=== PATIENT | male | born 1935 | race Caucasian/White ===

== ENCOUNTER 2020-04-20 19:11 | Emergency (ER) | payer OTHER, MEDICARE ==
[~2020-04-20] VITALS: Ht 172.7 cm; Wt 83.9 kg
[2020-04-20 19:28] VITALS: BP_SYST 138
[2020-04-20 22:20] VITALS: BP_SYST 101
== END 2020-04-20 22:20 | disposition home or self-care (01) ==
LOC: SED 19:11
DX: T83.021A Displacement of indwelling urethral catheter, initial encounter (principal); E07.9 Disorder of thyroid, unspecified; I10 Essential (primary) hypertension; Z88.5 Allergy status to narcotic agent; X58.XXXA Exposure to other specified factors, initial encounter; Y93.89 Activity, other specified; Y92.89 Other specified places as the place of occurrence of the external cause; Y99.8 Other external cause status
CPT/HCPCS: 99284

== ENCOUNTER 2021-06-03 14:27 | Inpatient (IN) | payer OTHER, MEDICARE, SELFPAY ==
[~2021-06-03] VITALS: Ht 172.7 cm; Wt 69.4 kg
[~2021-06-03 14:27] MED LIST: ASPI-1155 GT; CARB1TAB21 GT; FINA5TAB3 GT; FLUT5.9S NS; LEVO25TA7 GT; LEVO500T89 PO; METO-290 GT; NAPR-686 GT; PRO40 GT; SIMV40TA2 GT; TAMS-11 GT
--- NOTE | 2021-06-03 14:27 | NUR ---
brought in by [facility]. triaged, report given to cassie
[2021-06-03 14:33] VITALS: BP_SYST 139
[2021-06-03] MEDS ORDERED: CEFEPIME 1 GM in D5W 50 ML IV ONE (15:00)
[2021-06-03] MEDS ORDERED: VANCOMYCIN HCL 1,000 MG in NS 250 ML IV ONE (15:00)
[2021-06-03] MEDS ORDERED: NACL 0.9% 1,000 ML IV ONE (15:30)
[2021-06-03] MEDS ORDERED: ROCPM1 IV (15:39)
--- NOTE | 2021-06-03 15:40 | NUR ---
Medication reconciliation completed with information provided by [facility]. Any prior medication reconciliation on file was reviewed and corrected.
--- NOTE | 2021-06-03 15:40 | NUR ---
RECEIVED PATIENT IN BED #5, SOB, AAOx4, TACHYPNEIC, RHONCHI IN THE BILATERAL BASES. PATIENT IS STABLE, AWAITING FURTHER ASSESSMENT AND LABS, POSSIBLY ADMITTING BASED ON RESULTS.
[2021-06-03 15:44] LABS: BASOPHILS # (AUTO) 0.1 K/uL (0.0-0.2); BASOPHILS % (AUTO) 1.6 % (0.0-2.0); EOSINOPHILS # (AUTO) 0.3 K/uL (0.0-0.4); EOSINOPHILS % (AUTO) 4.9 % (0.0-4.0); HEMATOCRIT 36.6 % (36-54); HEMOGLOBIN 11.9 g/dL (14.0-18.0); LYMPHOCYTES # (AUTO) 1.6 K/uL (1.0-5.5); LYMPHOCYTES % (AUTO) 23.7 % (20.5-51.5); MEAN CORPUSCULAR HEMOGLOBIN 27 pg (27-31); MEAN CORPUSCULAR HGB CONC 32 % (32-36); MEAN CORPUSCULAR VOLUME 84 fL (79.0-98.0); MONOCYTES # (AUTO) 0.4 K/uL (0.0-1.0); MONOCYTES % (AUTO) 6.2 % (1.7-9.3); NEUTROPHILS # (AUTO) 4.2 K/uL (1.8-7.7); NEUTROPHILS % (AUTO) 63.6 % (40.0-70.0); PLATELET COUNT (AUTO) 120 K/uL (130-430); RED BLOOD CELL COUNT(AUTO) 4.34 MIL/uL (4.2-6.2); RED CELL DISTRIBUTION WIDTH 17.3 % (9.0-15.0); WHITE BLOOD COUNT (AUTO) 6.6 K/uL (4.8-10.8)
[2021-06-03 15:52] LABS: ANION GAP 2 (5-15); CALCIUM 9.5 mg/dL (8.4-11.0); CHLORIDE 103 mmol/L (98-107); CREATININE 0.92 mg/dL (0.55-1.30); GLUCOSE 86 mg/dL (70-99); POTASSIUM 4.1 mmol/L (3.5-5.1); SODIUM SERUM 140 mmol/L (136-145); UREA NITROGEN, BLOOD 29 mg/dL (8-21)
[2021-06-03 15:58] LABS: ALANINE AMINOTRANSFERASE 21 U/L (12-78); ALBUMIN 2.9 g/dL (3.4-4.8); ASPARTATE AMINOTRANSFERASE 35 U/L (10-37); TOTAL BILIRUBIN 0.3 mg/dL (0.0-1.0)
--- NOTE | 2021-06-03 19:00 | NUR ---
RECEIEVED REPORT, PT CURRENLY ON 15 L NON-REBREATHER SAT 100%, RT AT BEDSIDE CHANGED PT TO NC 5L 99%, PT TOLERATING WELL. VSS. DENIES ANY PAIN AT THIS TIME.
[2021-06-03 19:18] LABS: BILIRUBIN,URINE NEGATIVE (NEGATIVE); CLARITY/URINE CLEAR (CLEAR); COLOR,URINE YELLOW (YELLOW); GLUCOSE,URINE NEGATIVE (NEGATIVE); KETONES,URINE NEGATIVE (NEGATIVE); NITRITE, URINE POSITIVE (NEGATIVE); PH,URINE 7.5 (5.0-8.0); PROTEIN URINE NEGATIVE (NEGATIVE); UROBILINOGEN,URINE 0.2 (0.2-1.0)
--- NOTE | 2021-06-03 19:19 | NUR ---
Patient will be admitted to care of [facility]. Admitted to TELE unit. PENDING ROOM ASSIGNMENT. Belongings list completed. Complete and up to date summary report printed. SBAR report to be given at bedside with opportunity for questions.
--- NOTE | 2021-06-03 19:19 | NUR ---
Note kenzieone in EDM - 06/03/21 at 1920 by [id number] Patient will be admitted to care of [facility]. Admitted to TELE unit. PENDING ROOM ASSIGNMENT. Belongings list completed. Complete and up to date summary report printed. SBAR report to be given at bedside with opportunity for questions.
[2021-06-03] MEDS ORDERED: ATENOLOL 25 MG TABLET(TENORMIN) PO ONE (19:30)
[2021-06-03 19:35] LABS: BLOOD, URINE TRACE (NEGATIVE)
[2021-06-03 19:36] LABS: LEUKOCYTE ESTERASE ,URINE 1+ (NEGATIVE)
[2021-06-03 19:38] LABS: BACTERIA,URINE MODERATE /HPF (None Seen); MUCUS,URINE None Seen /LPF (None Seen)
--- NOTE | 2021-06-03 20:19 | NUR ---
Transfer to TELE via ACLS protocol. Licensed nurse present. IV present no signs or symptoms of infiltration.
--- NOTE | 2021-06-03 20:26 | NUR ---
ADMIT NOTE Received pt from ER to the floor with a diagnosis of PNA,COPD. Admission process initiated. patient oriented to pain management, safety and call light-teach back done.
--- NOTE | 2021-06-03 20:30 | NUR ---
NOTES PATIENT IN BED, ALERT, ORIENTED, VITALS STABLE. DENIES PAIN AT THIS TIME. ASSESSMENT DONE AND DOCUMENTED. SEE FLOWSHEET. NEEDS ATTENDED TO. SAFETY AND FALL MEASURES IN PLACED. CALL LIGHT PLACED WITHIN REACH.
[2021-06-03 21:04] VITALS: BP_SYST 112
[2021-06-03] MEDS ORDERED: LevALBUTEROL HCL 1.25 MG/0.5 ML *CONC.* VIAL.NEB (XOPENEX CONC.) INH PRN (21:30)
[2021-06-03] MEDS: ENOXAPARIN SODIUM 40 MG/0.4 ML SYRINGE SUBCUT SCH (22:25)
[2021-06-03 22:47] VITALS: BP_SYST 112
[2021-06-03] MEDS: LevALBUTEROL HCL 1.25 MG/0.5 ML *CONC.* VIAL.NEB (XOPENEX CONC.) INH SCH (23:48)
[2021-06-04] VITALS: BP_SYST 115
[2021-06-04 06:54] LABS: BASOPHILS % (AUTO) 0.4 % (0.0-2.0); EOSINOPHILS # (AUTO) 0.4 K/uL (0.0-0.4); EOSINOPHILS % (AUTO) 5.5 % (0.0-4.0); HEMOGLOBIN 11.3 g/dL (14.0-18.0); LYMPHOCYTES # (AUTO) 1.5 K/uL (1.0-5.5); LYMPHOCYTES % (AUTO) 22.8 % (20.5-51.5); MEAN CORPUSCULAR HEMOGLOBIN 28 pg (27-31); MEAN CORPUSCULAR HGB CONC 32 % (32-36); MEAN CORPUSCULAR VOLUME 85 fL (79.0-98.0); MONOCYTES # (AUTO) 0.6 K/uL (0.0-1.0); MONOCYTES % (AUTO) 8.6 % (1.7-9.3); NEUTROPHILS # (AUTO) 4.2 K/uL (1.8-7.7); NEUTROPHILS % (AUTO) 62.7 % (40.0-70.0); PLATELET COUNT (AUTO) 111 K/uL (130-430); RED BLOOD CELL COUNT(AUTO) 4.12 MIL/uL (4.2-6.2); RED CELL DISTRIBUTION WIDTH 17.5 % (9.0-15.0); WHITE BLOOD COUNT (AUTO) 6.7 K/uL (4.8-10.8)
[2021-06-04] MEDS: LANSOPRAZOLE 30 MG CAPSULE.DR GT SCH (07:27)
[2021-06-04] MEDS: LevALBUTEROL HCL 1.25 MG/0.5 ML *CONC.* VIAL.NEB (XOPENEX CONC.) INH SCH ×3 (07:59→23:03)
[2021-06-04 08:00] VITALS: BP_SYST 112
[2021-06-04] MEDS ORDERED: cefTRIAXone 1 GM IVPB PREMIX 50 ML IV SCH (09:00)
[2021-06-04] MEDS: ASPIRIN 81 MG TAB.CHEW GT SCH (09:28)
[2021-06-04] MEDS: SIMVASTATIN 40 MG TABLET GT SCH (09:28)
[2021-06-04] MEDS: FINASTERIDE 5 MG TABLET (PROSCAR) GT SCH (09:28)
[2021-06-04] MEDS: NAPROXEN 250 MG TABLET GT SCH (09:28)
[2021-06-04] MEDS: TAMSULOSIN HCL 0.4 MG CAP GT SCH (09:28)
[2021-06-04] MEDS: LEVOTHYROXINE SODIUM 0.025 MG TABLET GT SCH (09:28)
[2021-06-04] MEDS: METOCLOPRAMIDE HCL 10 MG TABLET GT SCH (09:29)
[2021-06-04] MEDS: CARBIDOPA/LEVODOPA 25/100 MG TABLET GT SCH ×3 (09:29→20:13)
[2021-06-04] MEDS: CEFTRIAXONE SOD 1 GM/ D5W 50 ML IV SCH ×2 (09:40)
--- NOTE | 2021-06-04 10:06 | NUR ---
Nutrition Update Navi Scale 15 noted. Pt admitted for COPD. Diet: Jevity 1.2 at 50 ml/hr, Free Water Flush: 100 via GT BMI: 23.3 kg/m2 RD to follow per nutrition care standards.
[2021-06-04 10:11] LABS: ANION GAP 5 (5-15); CALCIUM 9.5 mg/dL (8.4-11.0); CHLORIDE 105 mmol/L (98-107); CREATININE 1.02 mg/dL (0.55-1.30); GLUCOSE 95 mg/dL (70-99); SODIUM SERUM 142 mmol/L (136-145); UREA NITROGEN, BLOOD 26 mg/dL (8-21)
[2021-06-04 12:00] VITALS: BP_SYST 110
[2021-06-04] MEDS: AZITHROMYCIN 500 MG in NS 250 ML IV SCH (12:57)
[2021-06-04 16:00] VITALS: BP_SYST 117
--- NOTE | 2021-06-04 19:35 | NUR ---
ROUNDS PATIENT RESTING COMFORTABLY IN BED, NOT IN DISTRESS, VITALS STABLE. ASSESSMENT DONE AND DOCUMENTED. SEE FLOWSHEET. NEEDS ATTENDED TO. SAFETY AND FALL MEASURES IN PLACED. CALL LIGHT PLACED WITHIN REACH.
[2021-06-04 20:00] VITALS: BP_SYST 112
[2021-06-04] MEDS: ENOXAPARIN SODIUM 40 MG/0.4 ML SYRINGE SUBCUT SCH (20:14)
[2021-06-05] MEDS: LANSOPRAZOLE 30 MG CAPSULE.DR GT SCH (06:10)
[2021-06-05 06:37] VITALS: BP_SYST 115
--- NOTE | 2021-06-05 06:55 | NUR ---
CLOSING NOTES PATIENT AWAKE, VITALS STABLE, ALL NEEDS ATTENDED TO. ORAL CARE DONE. SAFETY MEASURES MAINTAINED. WILL ENDORSE TO INCOMING SHIFT NURSE.
[2021-06-05] MEDS: LevALBUTEROL HCL 1.25 MG/0.5 ML *CONC.* VIAL.NEB (XOPENEX CONC.) INH SCH ×2 (07:00→16:42)
--- NOTE | 2021-06-05 08:00 | NUR ---
Initial Note Patient lying in bed awake, alert, and oriented x 4. HOB elevated 45 degrees. No apparent distress. Saturating 98% on 3 L via Oxymizer. Generalized pain 3/10. Isbell catheter in place, patent and draining clear yellow urine to gravity. G-tube in place to left upper quadrant. Tube feeding Jevity 1.2 running at 50 cc/hr. No residual, skin intact surrounding G-tube site. Oral care and suctioning provided. Repositioned patient for comfort. Needs addressed. Call light in reach, suction catheter in reach per patient request. Bed in lowest position with alarm on. Encouraged to call.
[2021-06-05 08:06] VITALS: BP_SYST 151
[2021-06-05] MEDS: TAMSULOSIN HCL 0.4 MG CAP GT SCH (09:00)
[2021-06-05] MEDS: CARBIDOPA/LEVODOPA 25/100 MG TABLET GT SCH ×3 (09:00→20:12)
[2021-06-05] MEDS: NAPROXEN 250 MG TABLET GT SCH (09:00)
[2021-06-05] MEDS: METOCLOPRAMIDE HCL 10 MG TABLET GT SCH (09:00)
[2021-06-05] MEDS: SIMVASTATIN 40 MG TABLET GT SCH (09:00)
[2021-06-05] MEDS: FINASTERIDE 5 MG TABLET (PROSCAR) GT SCH (09:00)
[2021-06-05] MEDS: ASPIRIN 81 MG TAB.CHEW GT SCH (09:00)
[2021-06-05] MEDS: LEVOTHYROXINE SODIUM 0.025 MG TABLET GT SCH (09:01)
[2021-06-05] MEDS: CEFTRIAXONE SOD 1 GM/ D5W 50 ML IV SCH ×2 (09:01)
[2021-06-05] MEDS: AZITHROMYCIN 500 MG in NS 250 ML IV SCH (09:52)
[2021-06-05 12:00] VITALS: BP_SYST 144
--- NOTE | 2021-06-05 12:00 | NUR ---
Notes Patient sleeping, wakes easily to verbal stimuli. No pain or distress. Assessed needs. Changed and repositioned patient for comfort. Jevity 1.2 running at 50 cc/hr. Patient tolerating well, no residual. Call light and suction catheter in reach, bed in lowest position with alarm on. Encouraged to call.
--- NOTE | 2021-06-05 15:38 | NUR ---
Notes Spoke with daughter Flora regarding updates, states she will visit tomorrow at 1100. Patient notified per Flora's request. Repositioned patient in bed for comfort. Noted confusion, patient requesting to call his office but no longer working. Reoriented patient. Call light and suction catheter in reach, bed locked in lowest position with alarm on. Encouraged to call.
[2021-06-05 16:02] VITALS: BP_SYST 140
--- NOTE | 2021-06-05 19:18 | NUR ---
Closing Note Patient resting in bed, HOB elevated [address], patent and draining yellow urine. Tube feeding running at 50 cc/hr. Aspiration and safety precautions in place throughout shift. All needs met. Saturating 98% on 3 L via Oxymizer. No pain or distress. Call light and suction catheter in reach and bed in lowest position with alarm on. Will endorse to night nurse.
--- NOTE | 2021-06-05 19:40 | NUR ---
ROUNDS PATIENT RESTING COMFORTABLY IN BED, VITALS STABLE, DENIES ANY PAIN AT THIS TIME. ASSESSMENT DONE AND DOCUMENTED. SEE FLOWSHEET. NEEDS ATTENDED TO. SAFETY MEASURES IN PLACED. CALL LIGHT PLACED WITHIN REACH.
[2021-06-05 20:00] VITALS: BP_SYST 114
[2021-06-05] MEDS: ENOXAPARIN SODIUM 40 MG/0.4 ML SYRINGE SUBCUT SCH (20:13)
--- NOTE | 2021-06-06 00:14 | NUR ---
PATIENT RESTING: Patient resting quietly. No acute distress noted. Vital signs within normal range.
[2021-06-06 00:25] VITALS: BP_SYST 115
[2021-06-06] MEDS: LANSOPRAZOLE 30 MG CAPSULE.DR GT SCH (06:20)
[2021-06-06 06:54] LABS: BASOPHILS % (AUTO) 0.5 % (0.0-2.0); EOSINOPHILS # (AUTO) 0.4 K/uL (0.0-0.4); EOSINOPHILS % (AUTO) 6.9 % (0.0-4.0); HEMATOCRIT 36.1 % (36-54); HEMOGLOBIN 11.6 g/dL (14.0-18.0); LYMPHOCYTES # (AUTO) 1.6 K/uL (1.0-5.5); LYMPHOCYTES % (AUTO) 29.2 % (20.5-51.5); MEAN CORPUSCULAR HEMOGLOBIN 27 pg (27-31); MEAN CORPUSCULAR HGB CONC 32 % (32-36); MEAN CORPUSCULAR VOLUME 85 fL (79.0-98.0); MONOCYTES # (AUTO) 0.5 K/uL (0.0-1.0); MONOCYTES % (AUTO) 9.7 % (1.7-9.3); NEUTROPHILS % (AUTO) 53.7 % (40.0-70.0); PLATELET COUNT (AUTO) 125 K/uL (130-430); RED BLOOD CELL COUNT(AUTO) 4.27 MIL/uL (4.2-6.2); RED CELL DISTRIBUTION WIDTH 17.7 % (9.0-15.0); WHITE BLOOD COUNT (AUTO) 5.6 K/uL (4.8-10.8)
--- NOTE | 2021-06-06 06:55 | NUR ---
CLOSING NOTES PATIENT AWAKE, NO COMPLAINTS AT THIS TIME, ALL NEEDS ATTENDED TO. SAFETY MEASURES MAINTAINED. CALL LIGHT PLACED WITHIN REACH.
[2021-06-06] MEDS: LevALBUTEROL HCL 1.25 MG/0.5 ML *CONC.* VIAL.NEB (XOPENEX CONC.) INH SCH ×2 (07:38→15:50)
--- NOTE | 2021-06-06 07:52 | NUR ---
OPENING NOTE Received report from scene shifter RN. Patient is alert and resting in bed. Patient on Oxymizer @ 3 L and tolerating well. Isbell catheter in place, patent, and draining clear yellow urine to gravity. G-tube is in place and patent and tube feedings are running Jevity 1.2 @ 50 mL/hr. Bed locked in lowest position and call light is within reach. Will continue to monitor.
[2021-06-06 07:59] LABS: ANION GAP 6 (5-15); CALCIUM 9.8 mg/dL (8.4-11.0); CHLORIDE 107 mmol/L (98-107); CREATININE 1.03 mg/dL (0.55-1.30); GLUCOSE 117 mg/dL (70-99); POTASSIUM 3.9 mmol/L (3.5-5.1); SODIUM SERUM 144 mmol/L (136-145); UREA NITROGEN, BLOOD 27 mg/dL (8-21)
[2021-06-06 08:00] VITALS: BP_SYST 152
[2021-06-06] MEDS: FINASTERIDE 5 MG TABLET (PROSCAR) GT SCH (08:23)
[2021-06-06] MEDS: TAMSULOSIN HCL 0.4 MG CAP GT SCH (08:24)
[2021-06-06] MEDS: METOCLOPRAMIDE HCL 10 MG TABLET GT SCH (08:24)
[2021-06-06] MEDS: LEVOTHYROXINE SODIUM 0.025 MG TABLET GT SCH (08:24)
[2021-06-06] MEDS: SIMVASTATIN 40 MG TABLET GT SCH (08:24)
[2021-06-06] MEDS: ASPIRIN 81 MG TAB.CHEW GT SCH (08:24)
[2021-06-06] MEDS: NAPROXEN 250 MG TABLET GT SCH (08:24)
[2021-06-06] MEDS: CARBIDOPA/LEVODOPA 25/100 MG TABLET GT SCH ×3 (08:24→20:21)
[2021-06-06] MEDS: AZITHROMYCIN 500 MG in NS 250 ML IV SCH (08:25)
[2021-06-06] MEDS: CEFTRIAXONE SOD 1 GM/ D5W 50 ML IV SCH ×2 (08:25)
[2021-06-06 10:46] VITALS: BP_SYST 152
--- NOTE | 2021-06-06 10:52 | NUR ---
Dietitian Recommendations *Continue Jevity 1.2 at 50ml/hr, FWF 100ml via GT. Provides: 1440 kcal, 67gm protein and 968ml fluids daily. Meets: 83% of lower end of estimated calorie needs and 82% of upper end of estimated protein needs. ' Please see Nutritional Assessment for details.
[2021-06-06 11:47] VITALS: BP_SYST 115
[2021-06-06 15:27] VITALS: BP_SYST 143
--- NOTE | 2021-06-06 15:45 | NUR ---
CM: Spoke with daughter Olivia (POA) regarding discharge plan, daughter requesting that pt go back to [facility] and [facility], and states that she has contracted with [facility] to administer iv antibiotics, home health nurse Terra called and confirmed that she will be available to give iv antibiotic upon pt's discharge back home. Also spoke with Shelby at [facility], agreed that to accepting pt back with discharge order for iv antibiotics with h/h.
--- NOTE | 2021-06-06 16:28 | NUR ---
CM : s/w Shelby,caregiver at [facility], the pt has service with [facility] # [phone]. The facility can accommodate the IV abx infusion as well.
--- NOTE | 2021-06-06 16:30 | NUR ---
CM: Spoke with Dr. Hernandez about daughters request for pt to return to [facility], states okay for tomorrow discharge back with antibiotics administered via g-tube.
--- NOTE | 2021-06-06 18:33 | NUR ---
CLOSING NOTE Patient currently resting in bed and is on Oxymizer 3 L and tolerating well. IV is patent and saline-locked. Isbell catheter is patent and draining by gravity. Bed locked in lowest position and call light is within reach. All needs met. Will endorse to food order delivery runner RN.
--- NOTE | 2021-06-06 19:30 | NUR ---
Opening note Received report from day shift. Pt is lying in bed, no s/s of respiratory distress. On 3L oxymixer, tolerating well. Breathing even and unlabored. IV site is intact and patent. Tube feeding is running at ordered rate. Isbell catheter is intact and draining. Fall and safety precautions in place with bed in lowest position, bed alarm on, and call light within reach.
[2021-06-06 20:00] VITALS: BP_SYST 136
[2021-06-06] MEDS: ENOXAPARIN SODIUM 40 MG/0.4 ML SYRINGE SUBCUT SCH (20:30)
--- NOTE | 2021-06-07 00:16 | NUR ---
Rounds Pt is sleeping. No s/s of respiratory distress. No needs at this time
[2021-06-07 00:30] VITALS: BP_SYST 119
[2021-06-07] MEDS: LevALBUTEROL HCL 1.25 MG/0.5 ML *CONC.* VIAL.NEB (XOPENEX CONC.) INH SCH ×3 (00:43→16:23)
[2021-06-07] MEDS: LANSOPRAZOLE 30 MG CAPSULE.DR GT SCH (06:10)
--- NOTE | 2021-06-07 06:48 | NUR ---
Closing note Pt is lying in bed sleeping, no s/s of respiratory distress. On 3L oxymixer, tolerating well. Breathing even and unlabored. IV site is intact and patent. Tube feeding is running at ordered rate. Isbell catheter is intact and draining. Fall and safety precautions in place with bed in lowest position, bed alarm on, and call light within reach. All needs met throughout shift
[2021-06-07 08:00] VITALS: BP_SYST 138
[2021-06-07] MEDS: AZITHROMYCIN 500 MG in NS 250 ML IV SCH (08:39)
[2021-06-07] MEDS: LEVOTHYROXINE SODIUM 0.025 MG TABLET GT SCH (08:43)
[2021-06-07] MEDS: SIMVASTATIN 40 MG TABLET GT SCH (08:43)
[2021-06-07] MEDS: ASPIRIN 81 MG TAB.CHEW GT SCH (08:43)
[2021-06-07] MEDS: TAMSULOSIN HCL 0.4 MG CAP GT SCH (08:43)
[2021-06-07] MEDS: CARBIDOPA/LEVODOPA 25/100 MG TABLET GT SCH ×3 (08:43→20:22)
[2021-06-07] MEDS: NAPROXEN 250 MG TABLET GT SCH (08:43)
[2021-06-07] MEDS: FINASTERIDE 5 MG TABLET (PROSCAR) GT SCH (08:44)
[2021-06-07] MEDS: METOCLOPRAMIDE HCL 10 MG TABLET GT SCH (08:44)
[2021-06-07] MEDS: CEFTRIAXONE SOD 1 GM/ D5W 50 ML IV SCH ×2 (10:41)
[2021-06-07 12:00] VITALS: BP_SYST 133
--- NOTE | 2021-06-07 12:19 | NUR ---
Discharge Planning: DCP faxed pt referral to [facility] (F [phone] P [phone]) per Terra care will resume.
--- NOTE | 2021-06-07 13:45 | NUR ---
Note Pt resting in bed with GT feedings infusing well. Isbell Catheter intact and draining. Tele unit attached and intact all shift. Bed in low position and bed alarm on all shift. Pt checked on q1' and PRN all shift for needs and care. IV in RAC intact and patent.
--- NOTE | 2021-06-07 14:25 | NUR ---
CM: Spoke to patient's Lyla about discharge plan and need for transportation, stated its already been arranged, and they plan to pick him up themselves (referring to family member).
[2021-06-07 16:00] VITALS: BP_SYST 135
--- NOTE | 2021-06-07 16:32 | NUR ---
Wound Evaluation: Late note for 1631 secondary to patient care. Wound Consult ordered for Low Navi Score. Patient evaluated for a low Navi score of 15. Patient was awake, alert, confused, and received in a [place] Bed with an IsoFlex LATESHA mattress. Patient needs assist to turn in bed. Skin assessment: 1. General body area: Dry, flaky skin, present on admission. Recommend: Cleanse dry, flaky skin areas with mild soap and water. Pat dry. Apply Eucerin cream to involved areas. Perform site care twice daily. Recommend encourage and assist patient as needed with repositioning every 2 hours with pillow support. Elevate, off-load and float bilateral heels with pillows. Offload pressure areas with pillows for pressure re-distribution. Perform skin care and monitor skin integrity Q shift. Use moisture barrier cream on moisture susceptible areas QID and PRN for soiling. Initiate low air-loss therapy.
--- NOTE | 2021-06-07 17:00 | NUR ---
Wound Evaluation: Wound Consult ordered for Low Navi Score. Patient evaluated for a low Navi score of 15. Patient was awake, alert, confused, and received in a [place] Bed with an IsoFlex LATESHA mattress. Patient needs assist to turn in bed. Skin assessment: 1. Left Inguinal area: Erythema from intertrigo, present on admission. Area has dark discolored tissue as well. 2. Right Inguinal area: Erythema from intertrigo, present on admission. Area has dark discolored tissue as well. Recommend: Cleanse involved areas with mild soap and water. Pat dry. Apply antifungal powder to involved areas, dust off excess powder with clean gauze. Cut Inter-dry Ag cloth to size and place in between Inguinal fold areas. Perform site care twice daily. Change Inter-dry Ag cloth every 5 days, and as needed for cloth soiling. Recommend encourage and assist patient as needed with repositioning side to side only every 2 hours with pillow support. Elevate, off-load and float bilateral heels with pillows. Offload pressure areas with pillows for pressure re-distribution. Perform skin care and monitor skin integrity Q shift. Use moisture barrier cream on moisture susceptible areas QID and PRN for soiling. Initiate low air-loss therapy. Addendum: 06/07/21 at 1742 by Emerson Valladares RN Error. Incorrect note entered.
--- NOTE | 2021-06-07 18:20 | NUR ---
NOTE Pt resting in bed all shift with GT feedings infusing well. Isbell catheter intact and draining. Tele unit attached and intact all shift. Pt was checked on q1' and PRN all shift. Pt's bed in low position and bed alarm on all shift. RAC IV intact and patent. Call light within reach. O2 on 3L/Oxymizer.
--- NOTE | 2021-06-07 19:30 | NUR ---
Opening note Received report from day shift. Pt is lying in bed, no s/s of respiratory distress. On 2L nasal cannula, tolerating well. Breathing even and unlabored. IV site is intact and patent saline locked. Tube feeding is running at ordered rate. Isbell catheter is intact and draining. Fall and safety precautions in place with bed in lowest position, bed alarm on, and call light within reach.
[2021-06-07 20:00] VITALS: BP_SYST 124
[2021-06-07] MEDS: EMOLLIENT COMBINATION NO.73 78 GM CREAM..G. TP SCH (20:25)
[2021-06-07] MEDS: ENOXAPARIN SODIUM 40 MG/0.4 ML SYRINGE SUBCUT SCH (20:31)
--- NOTE | 2021-06-08 00:15 | NUR ---
Rounds Pt is sleeping. No s/s of respiratory distress. No needs at this time
[2021-06-08 00:30] VITALS: BP_SYST 118
[2021-06-08] MEDS: LevALBUTEROL HCL 1.25 MG/0.5 ML *CONC.* VIAL.NEB (XOPENEX CONC.) INH SCH ×2 (05:43→07:39)
[2021-06-08] MEDS: LANSOPRAZOLE 30 MG CAPSULE.DR GT SCH (06:11)
--- NOTE | 2021-06-08 06:46 | NUR ---
Closing note Pt is lying in bed sleeping, no s/s of respiratory distress. On 3L nasal cannula, tolerating well. Breathing even and unlabored. IV site is intact and patent. Tube feeding is running at ordered rate. Isbell catheter is intact and draining. Fall and safety precautions in place with bed in lowest position, bed alarm on, and call light within reach. All needs met throughout shift
[2021-06-08 08:00] VITALS: BP_SYST 132
[2021-06-08] MEDS: TAMSULOSIN HCL 0.4 MG CAP GT SCH (09:10)
[2021-06-08] MEDS: METOCLOPRAMIDE HCL 10 MG TABLET GT SCH (09:10)
[2021-06-08] MEDS: CARBIDOPA/LEVODOPA 25/100 MG TABLET GT SCH (09:10)
[2021-06-08] MEDS: CEFTRIAXONE SOD 1 GM/ D5W 50 ML IV SCH ×2 (09:10)
[2021-06-08] MEDS: SIMVASTATIN 40 MG TABLET GT SCH (09:11)
[2021-06-08] MEDS: LEVOTHYROXINE SODIUM 0.025 MG TABLET GT SCH (09:11)
[2021-06-08] MEDS: NAPROXEN 250 MG TABLET GT SCH (09:11)
--- NOTE | 2021-06-08 09:30 | NUR ---
medication Patient is awake and alert laying in bed, no signs of any distress and breathing is equal and non labored. Patients has all safety precautions in place. call light is with him educated to use for assistance. all scheduled medication given. tolerated well.
[2021-06-08] MEDS: FINASTERIDE 5 MG TABLET (PROSCAR) GT SCH (09:32)
[2021-06-08] MEDS: ASPIRIN 81 MG TAB.CHEW GT SCH (09:32)
[2021-06-08] MEDS: EMOLLIENT COMBINATION NO.73 78 GM CREAM..G. TP SCH (09:33)
--- NOTE | 2021-06-08 10:30 | NUR ---
CM: PT HAS ORDER FOR DISCHARGE BACK TO [facility], WITH DOXYCYCLINE 100MG BID VIA GT, PRESCRIPTION ORDER FAXED TO FACILITY, TRANSPORT WILL BE ARRANGED, FAMILY NOTIFIED, SPOKE WITH DAUGHTER ERIKA, WILL RESUME CARE WITH [facility], NURSE COOPER DUNCAN AWARE.
--- NOTE | 2021-06-08 10:34 | NUR ---
Patient accepted at [facility] on po ABX by G-Tube. Rx for antibiotic sent to [facility].
[2021-06-08] MEDS: AZITHROMYCIN 500 MG in NS 250 ML IV SCH (10:38)
--- NOTE | 2021-06-08 10:43 | NUR ---
Discharge Planning: DCP arrange transport with [facility] ([phone]) 12:30 BLS P/U back to resident DCP made nurse aware, DCP also faxed RX to [facility]. (F [phone] P [phone]) spoke to Liz in pharmacy. DCP mad CM aware. Addendum: 06/08/21 at 1456 by Bridgette Adler DP Disposition 01
--- NOTE | 2021-06-08 11:00 | NUR ---
rn rounding patient is awake and alert requesting to be suctioned. patient provided with suction and oral swabs for hygiene. patient has all safety precautions in place. call light is with him no other needs at this time.
[2021-06-08 12:00] VITALS: BP_SYST 124
--- NOTE | 2021-06-08 13:25 | NUR ---
discharge patient is awake and alert, being discharge back to home at [facility]. patients daughter is aware of transfer patient states he also spoke with her. patients iv catheter removed catheter was intact, applied gauze and tape to insertion site. Patients id band removed. all belongings sent with him. patient educated on discharge paper work with no further questions. patient transferred via [facility] was name of ambulance. no signs of any distress, no other needs at this time.
[2021-06-09] MEDS ORDERED: FLUTICASONE PROPIONATE 50 mCg/SPRAY 16 GM NS SCH (09:00)
== END 2021-06-08 13:25 | disposition home health service (06) | DRG 190 ==
LOC: SED 14:27 → STU 19:17
PROVIDERS: ADMIT Family Medicine; ATTEND Family Medicine
DX: J44.0 Chronic obstructive pulmonary disease with (acute) lower respiratory infection (principal); J18.9 Pneumonia, unspecified organism; J96.12 Chronic respiratory failure with hypercapnia; J96.11 Chronic respiratory failure with hypoxia; G20 Parkinson's disease; E03.9 Hypothyroidism, unspecified; I10 Essential (primary) hypertension; Y95 Nosocomial condition; Z96.652 Presence of left artificial knee joint; E78.5 Hyperlipidemia, unspecified; N40.0 Benign prostatic hyperplasia without lower urinary tract symptoms; Z20.822 Contact with and (suspected) exposure to COVID-19; F03.90 Unspecified dementia, unspecified severity, without behavioral disturbance, psychotic disturbance, mood disturbance, and anxiety; Z88.8 Allergy status to other drugs, medicaments and biological substances; Z79.82 Long term (current) use of aspirin; Z93.1 Gastrostomy status; Z86.73 Personal history of transient ischemic attack (TIA), and cerebral infarction without residual deficits; Z79.899 Other long term (current) drug therapy
CPT/HCPCS: 36415; 36600; 71045; 80048; 80053; 81000; 82803-TC; 83605; 83735; 83880; 84484; 85025; 86710; 87040-TC; 87081; 87086; 93005; 94640; 94760; 99291; G0378; J0456; J0692; J0696; J1650; J1956; J3370; J7050; J7060; J7612; J8597